=== PATIENT | female | born 1975 ===

== ENCOUNTER 2025-02-13 11:45 | Inpatient (IN) | payer OTHER ==
[~2025-02-13] VITALS: Ht 172.7 cm; Wt 63.5 kg
[2025-02-13 12:26] VITALS: BP 119/76
[2025-02-13] MEDS ORDERED: SYNTHROID200 MCG PO (12:26)
[2025-02-13 12:39] VITALS: BP 106/70
[2025-02-13 14:21] LABS: RH NEGATIVE
[2025-02-18] MEDS ORDERED: CEFAZOLIN SODIUM 1,000 MG VIAL ONE (09:13)
[2025-02-18] MEDS ORDERED: POVIDONE-IODINE 118 ML BOTT TOP ONE (10:09)
[2025-02-18] MEDS ORDERED: CHLORHEXIDINE GLUCONATE 120 ML BOTTLE TOP ONE (10:09)
[2025-02-18] MEDS ORDERED: HEMOSTATIC MATRIX 1 KIT KIT TOP ONE (12:04)
[2025-02-18] MEDS ORDERED: SURGIFLO APPLICATOR 1 EACH APPL TOP ONE (12:04)
[2025-02-18] MEDS ORDERED: ONDANSETRON HCL 2 MG/ML VIAL IV PRN (12:45)
[2025-02-18] MEDS ORDERED: RINGERS SOLUTION,LACTATED 1,000 ML IV SCH (12:45)
[2025-02-18] MEDS ORDERED: MORPHINE SULFATE 4 MG/ML VIAL IV ONE (14:30)
[2025-02-18] MEDS ORDERED: MORPHINE SULFATE 4 MG/ML VIAL IV SCH (16:00)
[2025-02-18] MEDS ORDERED: MORPHINE SULFATE 4 MG,MORPHINE SULFATE 2 MG IV SCH (16:00)
[2025-02-18 17:23] LABS: BASO % 0.1 % (0.1-1.2); HEMATOCRIT 34.6 % (34.1-44.9); HEMOGLOBIN 11.7 g/dL (11.2-15.7); LYMPH % 5.7 % (19.3-53.1); MEAN CORPUSCULAR HEMOGLOBIN 28.5 pg (25.6-32.2); MONO # 0.34 (0.24-0.82); MONO % 3.2 % (4.7-12.5); NEUT # 9.52 (1.56-6.13); NEUT % 90.8 % (34.0-71.1); PLATELET COUNT 175 K/uL (163-369)
[2025-02-18 17:49] VITALS: BP 119/76
[2025-02-18] MEDS ORDERED: CEFAZOLIN SODIUM 1,000 MG VIAL IV SCH (18:00)
[2025-02-19 00:55] VITALS: BP 116/73
[2025-02-19] MEDS ORDERED: DOLOGESIC 500-1 EACH PO (06:55)
[2025-02-19] MEDS ORDERED: NEURONTIN300 MG PO (06:55)
[2025-02-19] MEDS ORDERED: SIMETHICONE80 MG PO (06:56)
[2025-02-19 08:00] VITALS: BP 93/61
[2025-02-19] MEDS ORDERED: ENOXAPARIN SODIUM 40 MG/0.4 ML SYRINGE SUBCUTANEO SCH (09:00)
== END 2025-02-19 10:48 | disposition home or self-care (01) | DRG 743 ==
LOC: O/R 02-18 07:46 → OB/GYN 02-18 07:46 → SURH 02-18 11:45 → OB/GYN 02-18 13:46
PROVIDERS: ADMIT Obstetrics & Gynecology Gynecology; ATTEND Obstetrics & Gynecology Gynecology
PROC: 0UT74ZZ Resection of Bilateral Fallopian Tubes, Percutaneous Endoscopic Approach (ICD-10-PCS; 2025-02-18)
PROC: 0UT04ZZ Resection of Right Ovary, Percutaneous Endoscopic Approach (ICD-10-PCS; 2025-02-18)
PROC: 0UT94ZZ Resection of Uterus, Percutaneous Endoscopic Approach (ICD-10-PCS; principal; 2025-02-18 11:45)
DX: D25.1 Intramural leiomyoma of uterus (principal); N80.03 Adenomyosis of the uterus; N83.11 Corpus luteum cyst of right ovary